=== PATIENT | female | born 1950 | race Caucasian/White ===

== ENCOUNTER → 2022-04-13 | Outpatient (CLI) | payer SELFPAY, OTHER ==
--- NOTE | 2022-04-13 12:05 | US_ITS ---
EXAM: US RETROPERITONEAL LIMITED, RENAL CLINICAL INDICATION: UTI TECHNIQUE: Limited grayscale and color Doppler sonographic evaluation of the retroperitoneum was performed. This report was created using [employer] report generation technology. COMPARISON: None. FINDINGS: RIGHT KIDNEY: Right kidney measures 9.9 cm in length. No hydronephrosis. No shadowing calculus. No perinephric collection is demonstrated. LEFT KIDNEY: Left kidney measures 10.2 cm in length. There are small parapelvic left renal cysts. No hydronephrosis. No shadowing calculus. No perinephric collection is demonstrated. BLADDER: Urinary bladder is normal. US/Kidney and Bladder IMPRESSION: No acute renal abnormality Electronically Signed: Nadeem Mullen MD at 14:17 EDT ,
== END | disposition home or self-care (01) ==
LOC: US 12:05
PROVIDERS: PCP Physician Assistant; Referring Provider Urology; Visit Provider Urology
DX: N39.0 Urinary tract infection, site not specified (principal)
CPT/HCPCS: 76770